=== PATIENT | female | born 1995 | race African-American/Black ===

== ENCOUNTER 2021-10-13 12:37 | Emergency (ER) | payer OTHER ==
[~2021-10-13] VITALS: Ht 167.6 cm; Wt 81.8 kg
[2021-10-13] MEDS ORDERED: MULTTAB20 PO (12:54)
[2021-10-13] MEDS ORDERED: NS 1,000 ML IV ONE (16:45)
[2021-10-13 17:16] LABS: BASO % 0.4 % (0.0-1.0); EOS % 0.3 % (0.0-3.0); HEMOGLOBIN 12.3 g/dl (12.0-15.5); LYMPH # 2.2 10^3/uL (1.5-5.0); LYMPH % 23.3 % (24.0-44.0); MEAN CORPUSCULAR HEMOGLOBIN 31.5 pg (27.0-33.0); MEAN CORPUSCULAR HGB CONC 34.2 g/dl (32.0-36.5); MEAN CORPUSCULAR VOLUME 92.3 fl (80.0-96.0); MONO # 0.6 10^3/uL (0.0-0.8); MONO % 6.2 % (2.0-8.0); NEUTROPHILS # 6.6 10^3/uL (1.5-8.5); NEUTROPHILS % 69.2 % (36.0-66.0); PLATELET COUNT, AUTOMATED 151 10^3/uL (150-450); WHITE BLOOD COUNT 9.6 10^3/uL (4.0-10.0)
[2021-10-13 17:42] LABS: ALT/SGPT 14 U/L (12-78); BILIRUBIN,TOTAL 0.3 MG/DL (0.2-1.0); BLOOD UREA NITROGEN 6 MG/DL (7-18); CARBON DIOXIDE LEVEL 23 MEQ/L (21-32); CHLORIDE LEVEL 107 MEQ/L (98-107); CREATININE FOR GFR 0.47 MG/DL (0.55-1.30); GLOMERULAR FILTRATION RATE > 60.0 (>60); GLUCOSE, FASTING 71 MG/DL (70-100); LDH LACTATE DEHYDROGENASE 126 U/L (84-246); SODIUM LEVEL 140 MEQ/L (136-145); TOTAL PROTEIN 7.3 GM/DL (6.4-8.2)
--- NOTE | 2021-10-13 17:45 | REP ---
INDICATION: nausea and vomiting x 1 week +cramping COMPARISON: None. TECHNIQUE: Transabdominal obstetrical ultrasound with color Doppler evaluation. FINDINGS: Examination demonstrates a single live intrauterine in cephalic presentation. motion is identified by technologist. Placenta is noted anterior and grade 1 without evidence for placenta previa or abruption. Amniotic fluid volume is normal. Cervix measures 3.1 cm in length and appears closed.. Selected gestational age: 28 weeks 0 days with MUNIRA 01/05/2021. FHR equals 142 beats per minute. CHUCKY: 18.5 cm Umbilical artery SD ratio: 2.90 (2.09-4.36) IMPRESSION: Single live intrauterine in cephalic presentation No gross abnormalities are identified. <Electronically signed by Rupert Willis > 10/13/21 [id number]
[2021-10-13 19:34] VITALS: BP 121/62
[2021-10-13 19:42] LABS: CREATININE,RANDOM URINE 86.5 MG/DL; TOTAL PROTEIN,RANDOM URINE 17.6 MG/DL (0.0-12.0)
[2021-10-13] MEDS ORDERED: FOSFOMYCIN TROMETHAMINE 3 GM POWDER PACKET (MONUROL) PO ONE (19:50)
== END 2021-10-13 21:10 | disposition home or self-care (01) ==
LOC: M ED 12:37
DX: O99.891 Other specified diseases and conditions complicating pregnancy (principal); R10.9 Unspecified abdominal pain; R82.71 Bacteriuria; Z3A.28 28 weeks gestation of pregnancy

== ENCOUNTER 2022-01-02 09:08 | Inpatient (IN) | payer OTHER ==
[2022-01-02] VITALS (11 sets, daily range): BP systolic 119–136; BP diastolic 59–84
[~2022-01-02] VITALS: Ht 165.1 cm; Wt 84.6 kg
[~2022-01-02 09:08] MED LIST: MULTTAB20 PO
[2022-01-02] MEDS ORDERED: LACTATED RINGER'S 1000 ML IV STA (09:58)
[2022-01-02] MEDS ORDERED: LIDOCAINE 1% MDV 20ML VIAL INFIL PRN (10:00)
[2022-01-02] MEDS ORDERED: TRANEXAMIC ACID INJection 1,000 MG in NS 100 ML IV PRN (10:00)
[2022-01-02] MEDS ORDERED: LR 1,000 ML IV SCH (10:00)
[2022-01-02] MEDS ORDERED: CARBOPROST TROMETHAMINE 250 MCG/ML AMP IM PRN (10:00)
[2022-01-02] MEDS ORDERED: OXYTOCIN DRIP 30 UNITS in IV 1 EA IV PRN ×4 (10:00)
[2022-01-02] MEDS ORDERED: METHYLERGONOVINE MALEATE 0.2 MG/ML VIAL (J2210) IM PRN (10:00)
[2022-01-02 11:18] LABS: HEMATOCRIT 35.4 % (36.0-47.0); HEMOGLOBIN 12.2 g/dl (12.0-15.5); MEAN CORPUSCULAR HEMOGLOBIN 31.9 pg (27.0-33.0); MEAN CORPUSCULAR HGB CONC 34.5 g/dl (32.0-36.5); MEAN CORPUSCULAR VOLUME 92.4 fl (80.0-96.0); PLATELET COUNT, AUTOMATED 161 10^3/uL (150-450); RED BLOOD COUNT 3.83 10^6/uL (4.00-5.40); WHITE BLOOD COUNT 11.3 10^3/uL (4.0-10.0)
[2022-01-02] MEDS ORDERED: ACETAMINOPHEN TAB 650MG DOSE (2X325MG) PO PRN (12:15)
[2022-01-02] MEDS ORDERED: DIBUCAINE 1% OINTMENT 30GM TOP PRN (12:15)
[2022-01-02] MEDS ORDERED: IBUPROFEN 600MG TAB PO PRN (12:15)
[2022-01-02] MEDS ORDERED: ACETAMINOPHEN 500 MG TAB PO PRN (12:15)
[2022-01-02] MEDS ORDERED: DOCUSATE SODIUM 100MG CAPSULE PO PRN (12:15)
[2022-01-02] MEDS ORDERED: METHYLERGONOVINE MALEATE 0.2 MG TAB PO PRN (12:15)
[2022-01-02] MEDS ORDERED: IBUPROFEN 800 MG TAB PO PRN (12:15)
[2022-01-02 13:35] LABS: RSV AMPLIFICATION NEGATIVE (NEGATIVE)
[2022-01-03 06:00] VITALS: BP 127/71
[2022-01-03] MEDS: PRENATAL VITAMINS CHEWABLE TABLET PO SCH (07:52)
[2022-01-03 18:00] VITALS: BP 123/63
[2022-01-04] MEDS ORDERED: IBUP80TA PO (05:25)
[2022-01-04] MEDS ORDERED: PRENCHW PO (05:25)
[2022-01-04] MEDS ORDERED: ACET1TAB55 PO (05:25)
[2022-01-04] MEDS ORDERED: COLA100C5 PO (05:25)
[2022-01-04 06:00] VITALS: BP 121/78
[2022-01-04] MEDS: PRENATAL VITAMINS CHEWABLE TABLET PO SCH (08:30)
[2022-01-04] MEDS ORDERED: INFLUENZA QUADRIVALENT PF VACCINE 0.5ML SYRINGE IM ONE (09:00)
== END 2022-01-04 12:30 | disposition home or self-care (01) | DRG 807 ==
LOC: M LDO 09:08 → M LDI 09:59 → M OBS 15:34
PROVIDERS: ADMIT Advanced Practice Midwife; ATTEND Advanced Practice Midwife
PROC: 10E0XZZ Delivery of Products of Conception, External Approach (ICD-10-PCS; principal; 2022-01-02)
PROC: 0UQMXZZ Repair Vulva, External Approach (ICD-10-PCS; 2022-01-02)
DX: O71.82 Other specified trauma to perineum and vulva (principal); Z37.0 Single live birth; Z3A.39 39 weeks gestation of pregnancy; O77.0 Labor and delivery complicated by meconium in amniotic fluid